=== PATIENT | female | born 1970 | race Caucasian/White ===

== ENCOUNTER 2019-01-21 06:53 | Inpatient (IN) | payer OTHER ==
[~2019-01-21] VITALS: Ht 170.2 cm; Wt 89.9 kg
[2019-01-21 06:56] VITALS: Ht 170.2 cm; Wt 89.9 kg
[2019-01-21 08:05] LABS: BASOPHIL % 0.8 % (0-2); PLATELET COUNT 232 x10^3mcL (130-400); RED CELL DISTRIBUTION WIDTH 12.7 % (11.5-14.5)
[2019-01-21 08:23] LABS: CALCIUM 8.4 mg/dL (8.5-10.1); CARBON DIOXIDE 29.8 mmol/L (21-32); CHLORIDE SERUM 105 mmol/L (98-107); CREATININE SERUM 0.5 mg/dL (0.6-1.0); GFR1 > 60 mL/min; GLUCOSE SERUM 93 mg/dL (74-106); SODIUM SERUM 140 mmol/L (136-145)
[2019-01-21 08:26] LABS: ALBUMIN 3.4 g/dL (3.4-5.0); ALKALINE PHOSPHATASE 51 U/L (46-116); ALT/SGPT 16 U/L (14-59); AST/SGOT 21 U/L (15-37); BILIRUBIN TOTAL 0.52 mg/dL (0.20-1.00); MAGNESIUM 2.2 mg/dL (1.8-2.4); TOTAL PROTEIN, SERUM 6.9 g/dL (6.4-8.2)
[2019-01-21 08:32] LABS: T3 TOTAL 1.07 ng/mL
[2019-01-21 08:34] LABS: FREE T4 0.84 ng/dL (0.76-1.46); FREE THYROXINE INDEX 2.2 ug/dL (1.4-4.5); T4(THYROXINE) 5.9 ug/dL (4.7-13.3)
[2019-01-21 09:16] LABS: AMPHETAMINE QUAL UR NONE DETECTED (See below)
[2019-01-21 12:31] LABS: UA SPECIFIC GRAVITY 1.015 (1.005-1.035); microscopic required? YES; urine erythrocyte NEGATIVE (NEGATIVE)
[2019-01-21 12:50] LABS: PHOSPHOROUS 3.7 mg/dL (2.5-4.9)
[2019-01-21 12:51] LABS: CHOLESTEROL/HDL RATIO 1.7
[2019-01-21 13:31] VITALS: BP 101/79
[2019-01-21 17:29] VITALS: BP 96/66
[2019-01-21 19:10] VITALS: BP 103/64
[2019-01-22 06:12] LABS: PLATELET COUNT 195 x10^3mcL (130-400); RED CELL DISTRIBUTION WIDTH 13.3 % (11.5-14.5)
[2019-01-22 06:16] VITALS: BP 92/58
[2019-01-22 06:24] LABS: CALCIUM 7.7 mg/dL (8.5-10.1); CARBON DIOXIDE 26.7 mmol/L (21-32); CHLORIDE SERUM 107 mmol/L (98-107); CREATININE SERUM 0.6 mg/dL (0.6-1.0); GFR1 > 60 mL/min; GLUCOSE SERUM 86 mg/dL (74-106); MAGNESIUM 1.9 mg/dL (1.8-2.4); PHOSPHOROUS 3.8 mg/dL (2.5-4.9); POTASSIUM SERUM 3.7 mmol/L (3.5-5.1); SODIUM SERUM 138 mmol/L (136-145)
[2019-01-22 08:31] VITALS: BP 107/64
[2019-01-22 12:23] VITALS: BP 97/59
[2019-01-22] MEDS ORDERED: ECO81 PO (12:23)
[2019-01-22] MEDS ORDERED: METOPROLOL TART25 M1 PO (12:23)
[2019-01-22 13:03] VITALS: BP 98/65
== END 2019-01-22 14:06 | disposition home or self-care (01) | DRG 201 ==
LOC: ED 06:53 → DU 11:16
PROVIDERS: Emergency Medicine; ADMIT General Practice
DX: I48.0 Paroxysmal atrial fibrillation (principal); E83.51 Hypocalcemia; E66.9 Obesity, unspecified; Z79.82 Long term (current) use of aspirin; Z68.31 Body mass index [BMI] 31.0-31.9, adult; Z88.6 Allergy status to analgesic agent
CPT/HCPCS: 83880; 84439; J1650; J3490; J7030; Q0092

== ENCOUNTER 2019-11-13 14:37 | Emergency (ER) | payer OTHER ==
[~2019-11-13] VITALS: Ht 167.6 cm; Wt 90.3 kg
[~2019-11-13 14:37] MED LIST: ECO81 PO; METOPROLOL TART25 M1 PO
[2019-11-13 14:42] VITALS: Ht 167.6 cm; Wt 90.3 kg
[2019-11-13 15:13] VITALS: BP 116/54
== END 2019-11-13 15:13 | disposition home or self-care (01) ==
LOC: ED 14:37
DX: L60.0 Ingrowing nail (principal); J45.909 Unspecified asthma, uncomplicated; Z88.5 Allergy status to narcotic agent